=== PATIENT | male | born 1960 | race Caucasian/White ===

== ENCOUNTER 2020-08-23 13:22 | Inpatient (IN) | payer BC ==
[2020-08-23] VITALS (23 sets, daily range): BP systolic 119–155; BP diastolic 76–112
[~2020-08-23] VITALS: Ht 177.8 cm; Wt 81.6 kg
[2020-08-23 13:36] LABS: ABSOLUTE BASOPHILS 0.1 thou/uL (0.0-0.2); ABSOLUTE EOSINOPHILS 0.1 thou/uL (0.0-0.7); ABSOLUTE LYMPHOCYTES 1.9 thou/uL (0.8-5.3); ABSOLUTE MONOCYTES 0.5 thou/uL (0.0-1.2); ABSOLUTE NEUTROPHILS 6.4 thou/uL (1.6-8.1); BASOPHILS 0.7 %; EOSINOPHILS 0.9 %; HEMATOCRIT 49.7 % (42.0-52.0); HEMOGLOBIN 17.1 gm/dL (14.0-18.0); LYMPHOCYTES 21.1 %; MCH 29.9 pg (26.0-34.0); MCHC 34.4 g/dL (28.0-37.0); MCV 86.9 fL (80.0-100.0); MONOCYTES 5.8 %; MPV 7.8 fl. (7.2-11.1); NUCLEATED RBCS 0 /100WBC; PLATELET COUNT* 256 thou/uL (150-400); POLYS 71.5 %; RBC 5.72 mil/uL (4.50-6.00); RDW-CV 13.1 % (10.5-14.5); WBC 8.9 thou/uL (4.0-11.0)
[2020-08-23 13:47] LABS: APTT 28.5 Seconds (25.0-31.3); INR 0.9; PROTIME 9.8 Seconds (9.20-11.50)
[2020-08-23 13:48] LABS: CALCIUM 8.8 mg/dL (8.5-10.1); POTASSIUM 4.1 mmol/L (3.5-5.1)
[2020-08-23 14:04] LABS: ALBUMIN 4.2 g/dL (3.4-5.0); MAGNESIUM 1.9 mg/dL (1.8-2.4); TOTAL BILIRUBIN 0.6 mg/dL (<0.1-1.0); TOTAL PROTEIN 8.5 g/dL (6.4-8.2)
[2020-08-23] MEDS ORDERED: BUPROPION XL300 MG PO (15:39)
[2020-08-23] MEDS ORDERED: COZAAR 25 MG TA25 M1 PO ×2 (15:39)
--- NOTE | 2020-08-23 16:02 | EKG ---
[place] [address] ELECTROCARDIOGRAM REPORT Name: MICHELLE LONDON Room: [address] IN [facility].#: [id number] Admission: 08/23/20 Attend Phys: Joe Biu MD Discharge: Date of : 58 Date of Service: 08/23/20 1326 Report #: [id number] THIS REPORT FOR: //name// [place] [facility] Test Date: 2020-08-23 Test Time: 13:26:34 Pat Name: MICHELLE LONDON Department: Room: [facility] Gender: M Email Marketing Coordinator: AISHA : 1960 Requested By: Emil Nolasco Order Number: [id number] MD: Joe Bui Measurements Intervals [place] Rate: 89 P: 45 MN: 188 QRS: 12 QRSD: 147 T: 24 QT: 385 QTc: 469 Interpretive Statements Sinus rhythm Right bundle branch block Probable inferior infarct, recent Probable anterolateral infarct, acute Baseline wander in lead(s) V1 No previous ECG available for comparison Electronically Signed On 08-23-2020 16:01:55 CDT by Joe Bui [email or web address] <ELECTRONICALLY SIGNED> By: Joe Bui MD, [facility] 08/23/20 1601 1326 1326 Joe Bui MD, [facility] /EPI
--- NOTE | 2020-08-23 16:46 | CARD ---
[address] [address] CARDIAC CATH REPORT Name: MICHELLE LONDON Room: [address] IN [facility]#: [id number] Admission: 08/23/20 Attend Phys: Joe Bui MD, F Discharge: Date of : 58 Report #: [id number] THIS REPORT FOR: cc: Truman Mora MD, Anthony MD Blick,Joe Mijares MD [facility] ~ APPROVED REPORT Study performed: 08/23/2020 13:30:11 Patient Details Patient Status: In-Patient Room #: The patient is a 59 year-old male Event Personnel Dayday Mckenzie RTR Monitor, Renae Ramirez RTR Scrub, Izzy Lino RN RN, Joe Bui [employer] Procedures Performed cath pciLeft Heart Cath w/or w/o Coronaries [id number] [facility] BREE Revasc AMI Total/Sub Single LAD C9606 AMIREVSING Hemostasis with Hemoband Indication Abnormal ECG, STEMI (>0 to less than or equal to 6 hours), Chest pain Risk Factors Arterial Hypertension, Hypercholesterolemia Admission/Lab Medications/Medications given during procedure Glycoprotein IllbIlla Inhibitors, Heparin Unfract., Fentanyl IV 25 mcg, Midazolam (Versed) IV 1 mg, Lidocaine Subcut 4 ml, Nitroglycerin IA 200 mcg, Verapamil IA 2.5 mg, Heparin IV 3000 units, Aggrastat Unknown 10 ml, Ticagrelor PO 180 mg Procedure Narrative The patient was brought emergently to the Cardiac Catheterization Laboratory and was prepped and draped in a sterile manner. The right wrist was infiltrated with 2% Lidocaine subcutaneous anesthesia. IV conscious sedation was used throughout procedure with appropriate monitoring and was performed in the presence of a registered nurse who was an independent [place] [address] CARDIAC CATH REPORT Name: MICHELLE LONDON Ruy Room: [address]#: [id number] Admission: 08/23/20 Attend Phys: Joe Bui MD, F Discharge: Date of : 58 Report #: [id number] performing the procedure. The right wrist accessed via ultrasound guidance. A Slender Glidesheath sheath was inserted into the right radial artery. Coronary angiography was performed using coronary diagnostic catheters. The right coronary system was accessed and visualized with a Diagnostic JR4 6Fr catheter. The left coronary system was accessed and visualized with a Diagnostic JL4 6Fr catheter. The left ventricle was accessed and visualized with a Diagnostic Pigtail 6Fr catheter. Left ventricular/Aortic Valve gradient assessed via catheter pullback. Left ventriculogram was performed in LINDSAY projection. Closure device was deployed with a 6 Fr vascband. The patient tolerated the procedure well and there were no complications associated with the procedure. There was no hematoma. Intraoperative Conscious Sedation Sedation start time: 1346 Case end Time: 1424 Fentanyl 75 mcg Versed 3 mg Fluoro Time: 7.4 minutes Dose: DAP 68103 cGycm2 1269.73 mGy Contrast Type and Amount: Visipaque 160 ml Coronary Angiography The patient's coronary anatomy is right dominant. Diagnostic Cath Left Main 0% stenosis LAD 90% mid stenosis with thrombus Circumflex 0% stenosis Right Coronary 0% stenosis Ramus 0% stenosis Left Ventriculography The left ventricular ejection fraction is estimated to be 45-50%. Left ventricular wall motion abnormalities are present. There is no mitral insufficiency. Moderate hypokinesis noted of the apex. Hemodynamics The aortic pressure is 144/84 mmHg with a mean of 74 mmHg. The left ventricular pressure is 123/5 mmHg with a mean of mmHg. The left ventricular end diastolic pressure is 16 mmHg. There was no gradient across the aortic valve upon pullback. Pullback from the left ventricle to the aorta revealed [place] [address] CARDIAC CATH REPORT Name: MICHELLE LONDON Room: [address]#: [id number] Admission: 08/23/20 Attend Phys: Joe Bui MD, F Discharge: Date of : 58 Report #: [id number] valve. PCI Technique Lesion Anticoagulation was achieved with Heparin. bolus of IV aggrastat given Percutaneous coronary intervention was performed on the mid left anterior descending artery segment. The lesion stenosis prior to intervention was 90% with JONATHAN 3 flow. A xblad3.5 Guide Catheter was used to engage the lm ostium. A bmw Interventional Guidewire was used to cross the lesion. BALLOON DILATION A Balloon catheter 2.5 x 10 mm was inserted and inflated up to 14.00atm for 15seconds. Repeat angiography revealed the following post-dilatation results: 40% stenosis. Additional Inflation: 22.00atm for seconds. STENT DEPLOYMENT A drug-eluting stent 3.0 x 18 mm was inserted and inflated up to 10.00atm for 15seconds. Repeat angiography revealed the following post-stent deployment results: 0% stenosis. Additional Inflation: 18.00atm for 20seconds. Additional Inflation: 22.00atm for 24seconds. Final angiography reveals 0 % stenosis with JONATHAN 3 flow. Conclusion 1. 90% stenosis noted of the mid LAD 2. LVEF 45-50% 3. successful placement of a drug eluting stent in the mid LAD Recommendations Cardiac Rehabilitation Referral Aggressive Medical Therapy Medications Administered Ticagrelor <ELECTRONICALLY SIGNED> By: Joe Bui MD, [facility] 08/23/20 1645 1645 1645Joe Bui MD, FAC /INF
[2020-08-24] VITALS (32 sets, daily range): BP systolic 110–140; BP diastolic 64–94
[2020-08-24 02:44] LABS: HEMOGLOBIN 15.6 gm/dL (14.0-18.0); MCH 29.7 pg (26.0-34.0); MCHC 34.6 g/dL (28.0-37.0); MCV 85.7 fL (80.0-100.0); MPV 8.2 fl. (7.2-11.1); RBC 5.25 mil/uL (4.50-6.00); RDW-CV 13.4 % (10.5-14.5); WBC 9.8 thou/uL (4.0-11.0)
[2020-08-24 02:56] LABS: CALCIUM 8.6 mg/dL (8.5-10.1); POTASSIUM 3.9 mmol/L (3.5-5.1)
[2020-08-24 02:57] LABS: TROPONIN-I LEVEL 6.68 ng/mL (<0.06)
[2020-08-24 08:18] LABS: CHOLESTEROL 254 mg/dL (<200); HDL CHOLESTEROL 42 mg/dL (>40); LDL CHOLESTEROL 146 mg/dL (<100); TRIGLYCERIDE 333 mg/dL (<150); VLDL 67 mg/dL (<40)
[2020-08-24 08:19] LABS: SERUM ASSESSMENT Clear
[2020-08-25] VITALS: BP 134/84
[2020-08-25 05:38] VITALS: BP 133/79
[2020-08-25 08:00] VITALS: BP 134/85
[2020-08-25] MEDS ORDERED: BRILINTA90 MG PO (08:42)
[2020-08-25] MEDS ORDERED: NITROGLYCERIN0.4 MG SUBLING (08:42)
[2020-08-25] MEDS ORDERED: CARVEDILOL3.125 MG PO (08:42)
[2020-08-25] MEDS ORDERED: ZETIA10 MG PO (08:42)
[2020-08-25] MEDS ORDERED: COZAAR 25 MG TA25 M1 PO (08:43)
[2020-08-25] MEDS ORDERED: BAYER CHEWABLE81 MG PO (08:43)
[2020-08-25 10:02] VITALS: BP 134/85
--- NOTE | 2020-08-26 12:46 | H ---
[place] [address] HISTORY AND PHYSICAL Name: MICHELLE LONDON Room: [address]Surjit.#: [id number] Admission: 08/23/20 Attend Phys: Joe Bui MD, F Discharge: 08/25/20 Date of : 58 Report #: [id number] THIS REPORT FOR: cc: Truman Mora MD,Truman Bui,Joe Mijares MD [facility] ~ DOC #: [id number] cc: MD Joe Recio MD [facility] DATE OF SERVICE: 08/23/2020 HISTORY OF PRESENT ILLNESS: The patient is a 59-year-old white male who I was asked to see in the emergency room after a complaint of chest pain. The patient has no previous history of heart disease. He has had occasional chest pain in the past with apparently a stress test that showed no significant heart disease. He is not very active at this time. Today, he was working outside, building a fence when he developed a sharp pain in his chest. He became diaphoretic, short of breath. The pain went into his right arm. He got nausea and vomiting. He called paramedics. He was brought here to [place] by ambulance. ECG shows evidence of acute inferior STEMI. I was asked to see him on an emergent basis. He denies any recent fever, cough, bleeding. He has had no trauma to his chest. Denies exertional dyspnea, palpitations, syncope, peripheral edema. PAST MEDICAL HISTORY: He has had cholecystectomy. He had a leg fracture in the past requiring surgery. He has had neck surgery. He has a history of hypertension. He has a history of depression, sees a psychiatrist. MEDICATIONS: Include losartan, Wellbutrin. He has a history of hyperlipidemia, but cannot tolerate statin drugs in the past because of muscle aches. ALLERGIES: He has no known drug allergies. FAMILY HISTORY: Negative for heart disease. SOCIAL HISTORY: He is . He and his live in [place]. He works at [employer]. No smoking, alcohol abuse. REVIEW OF SYSTEMS: No history of stroke, asthma, liver disease, kidney disease, cancer, psychiatric illness, chronic skin condition. PHYSICAL EXAMINATION: GENERAL: Revealed a middle-aged male, who appeared in mild distress secondary to chest pain. VITAL SIGNS: His blood pressure is 110/70, [place] [address] HISTORY AND PHYSICAL Name: MICHELLE LONDON Room: [address]#: [id number] Admission: 08/23/20 Attend Phys: Joe Bui MD, F Discharge: 08/25/20 Date of : 58 Report #: [id number] HEENT: He was anicteric. Conjunctivae pink. Mucosa is moist. NECK: Veins not distended. No carotid bruits. Neck supple. CHEST: Clear to auscultation. CARDIAC: Regular rate and rhythm. No murmur. ABDOMEN: Soft. EXTREMITIES: No edema. Posterior tibial pulse 2+ bilaterally. SKIN: Cool and dry. NEUROLOGIC: Nonfocal. LABORATORY DATA: ECG shows a sinus rhythm with a right bundle branch block. There is inferior ST segment elevation up to 1.5 mm. IMPRESSION AND RECOMMENDATIONS: 1. Acute inferior STEMI. Recommend urgent cardiac catheterization. 2. Hypertension. The patient is on ARB. 3. Hyperlipidemia. The patient cannot tolerate statin drugs. 4. History of depression. Joe Bui MD [facility] RONNIE/YARELI <ELECTRONICALLY SIGNED> By: Joe Bui MD, [facility] 08/26/20 1246 1240 1311Dnorm Bui MD, [facility] /nt
--- NOTE | 2020-08-26 13:44 | EKG ---
[place] [address] ELECTROCARDIOGRAM REPORT Name: MICHELLE LONDON Room: [address] IN [facility].#: [id number] Admission: 08/23/20 Attend Phys: Joe Bui MD Discharge: 08/25/20 Date of : 58 Date of Service: 08/23/20 1629 Report #: [id number] THIS REPORT FOR: //name// [facility] Test Date: 2020-08-23 Test Time: 16:29:25 Pat Name: MICHELLE LONDON Department: Room: [facility] Gender: M Public Service Officer: SHELBY : 1960 Requested By: Joe Bui Order Number: [id number] Reuben MD: Ruben Sood Measurements Intervals [place] Rate: 71 P: 65 ME: 186 QRS: -3 QRSD: 140 T: 14 QT: 383 QTc: 417 Interpretive Statements Sinus rhythm Right bundle branch block Inferior wall scar Compared to ECG 08/23/2020 13:26:[address]-T changes have evolved Electronically Signed On 08-26-2020 13:44:22 CDT by Ruben Sood [email or web address] <ELECTRONICALLY SIGNED> By: Ruben Sood MD, [facility] 08/26/20 1344 1629 1629 Ruben Sood MD, [facility] /EPI
--- OUTSIDE RECORDS SUMMARY | 2020-08-26 14:27 | XMS REPORT | Summary of Care ---
Demographics + + + | Address | [address] | | | [place], [place] [address] | + + + | Home Phone | | + + + | Preferred Language | Unknown | + + + | Marital Status | | + + + | Anabaptism Affiliation | Unknown | + + + | Race | White | + + + | Ethnic Group | Not or | + + + Author + + + | Author | [facility] | + + + | Organization | [facility] | + + + | Address | Unknown | + + + | Phone | Unavailable | + + + Support + + +---------+ + | Name | Relationship | Address | Phone | + + +---------+ + | Clary | ECON | Unknown | | | [place] | | | | + + +---------+ + Care Team Providers + +------+ + | Care Distribution Accounting Clerk Name | Role | Phone | + +------+ + | Leopoldo Chauhan MD | PCP | Unavailable | + +------+ + Encounter Details +------+---------+ + + + | Date | Type | Department | Care Team | Description | +------+---------+ + + + | 08/04 | Letter | [facility] | Leopoldo Chauhan MD | | | 07/23 | (Out) | [facility] | | | | 21 | | [address] | | | | [address] | | | | | | [address] [place] | | | | | | [facility] [place] [address] | | | | | | [phone] | | | +------+---------+ + + + Allergies Not on Filedocumented as of this encounter (statuses as of 08/26/2020) Medications Not on filedocumented as of this encounter (statuses as of 08/26/2020) Active Problems Not on filedocumented as of this encounter (statuses as of 08/26/2020) Social History + +-------+---------+--------+------+ | Tobacco Use | Types | Packs/D | Years | Date | | | | ay | Used | | + +-------+---------+--------+------+ | Never Assessed | | | | | + +-------+---------+--------+------+ + + + | Sex Assigned at | Date Recorded | | | | + + + | Not on file | | + + + documented as of this encounter Last Filed Vital Signs Not on filedocumented in this encounter Plan of Treatment +------+---------+ + + + | Date | Type | Specialty | Care Team | Description | +------+---------+ + + + | 0 | Office | Cardiology | Art, | | | 12/23 | Visit | | [facility] | | | [address] | | | [address] | | | | | | [address] [place] | | | | | | [place] | | | | | | [address] | | | | | | [phone] | | | | | | [phone] | | | | | | (Fax) | | +------+---------+ + + + | 10/04 | Office | Cardiology | Joe Bui, | | | | Visit | | [address] | | | [address] | | | [address] | | | | | | [address] | | | | | | [place] [address] | | | | | | [phone] | | | | | | [phone] | | | | | | (Fax) | | +------+---------+ + + + + +---------+-------+ + | Health | Due | Last | Comments | | Maintenance | Date | Done | | + +---------+-------+ + | COLONOSCOPY | | | | | | 960 | | | + +---------+-------+ + | COVID-19 VACCINE | | | | | | 978 | | | + +---------+-------+ + | INFLUENZA | | | | | VACCINE | 021 | | | + +---------+-------+ + documented as of this encounter Results Not on filedocumented in this encounter"
--- NOTE | 2020-08-27 16:32 | D ---
[address] [address] DISCHARGE SUMMARY Name: MICHELLE LONDON Room: [address]#: [id number] Admission: 08/23/20 Attend Phys: Joe Bui MD, F Discharge: 08/25/20 Date of : 58 Report #: [id number] THIS REPORT FOR: cc: Truman Mora MD,Truman Bui,Joe Mijares MD [facility] ~ DOC #: [id number] cc: MD Joe Recio MD [facility] DATE OF DISCHARGE: 08/25/2020 DISCHARGE DIAGNOSES: 1. Acute anterior ST segment elevation myocardial infarction. 2. Coronary artery disease. 3. Hypertension. 4. Hyperlipidemia. CONSULTANTS: None. PROCEDURES: Emergent left heart catheterization via the right radial artery with placement of a single drug-eluting stent in the left anterior descending artery. HISTORY OF PRESENT ILLNESS: The patient is a 59-year-old white male who came to the emergency room complaining of chest pain. The patient has a long history of chest pain, but apparently stress test in the past showed no significant ischemia. He has never had a heart catheterization. On the day of admission, he was working outside when he felt a discomfort in his chest, became diaphoretic and short of breath. He felt nausea and vomiting. He called paramedics. ECG showed evidence of acute anterior ST segment elevation myocardial infarction. He was brought to [place] by ambulance. I was asked to see him on an emergent basis. He does have discomfort which seemed to come and go. He denies any recent fever, cough, shortness of breath, bleeding, palpitations or syncope. PAST MEDICAL HISTORY: He has had previous cholecystectomy, neck surgery, hypertension, hyperlipidemia, history of anxiety and he sees a psychiatrist. MEDICATIONS: On admission included losartan and Wellbutrin. ALLERGIES: HE COULD NOT TOLERATE STATIN DRUGS in the past because of myalgias. He had no known drug allergies. PHYSICAL EXAMINATION: VITAL SIGNS: Blood pressure 110/70, [place] 90[place] [address] DISCHARGE SUMMARY Name: MICHELLE LONDON Room: [address]#: [id number] Admission: 08/23/20 Attend Phys: Joe Bui MD, F Discharge: 08/25/20 Date of : 58 Report #: [id number] CHEST: Clear to auscultation. CARDIAC: Regular rate and rhythm. ABDOMEN: Soft. EXTREMITIES: No edema. SKIN: Warm and dry. ECG: Sinus rhythm, right bundle branch block. There is ST segment elevation in lead II, III, aVF as well as V6. Chest x-ray on admission was unremarkable. LABORATORY DATA: Sodium 139, potassium 3.9, creatinine 1.0, fasting glucose 105. His liver function studies were normal. His troponin on admission was 2.66, it peaked at 6.68. His cholesterol was 254, triglycerides 333, HDL 42, LDL 146. White blood cell count 9.8, hemoglobin 17.1, platelet count was normal. His COVID antigen stat test was negative. HOSPITAL COURSE: The patient was taken emergently to the cardiac catheterization lab. I performed emergent cardiac catheterization from the right radial artery. Results showed a 90% stenosis of the LAD with a thrombus. There was normal flow, however. There is no significant disease in the circumflex or right coronary artery. Ejection fraction was 45% with apical hypokinesis. He was then given heparin and given a bolus of Aggrastat. I then placed a single drug-eluting stent in the mid LAD. He tolerated the procedure well. Following the procedure, he had no further chest pain, shortness of breath or palpitations. He developed no hematoma in the right wrist. He was loaded with Brilinta. After being in the ICU overnight, the patient was transferred to a telemetry bed on the second hospital day. On the third hospital day, the patient had no further complaints. At the time of discharge, he had a blood pressure of 130/80, pulse 70, and he was afebrile. He was discharged on the following medications: He was to continue taking his Wellbutrin 300 mg a day and he is followed by psychiatrist. He was on losartan 25 mg a day for hypertension. He was to take aspirin 81 mg a day. He was started on carvedilol 3.125 mg twice a day. For his hyperlipidemia, he was started on Zetia 10 mg a day. He was to slowly increase his activity. He was to contact my office if he had recurrent chest pain, shortness of breath or palpitations. He was given nitroglycerin to take as needed for chest pain. In the future, I would consider adding Vascepa because of his hypertriglyceridemia. He was scheduled to see me back in Cardiology clinic in 6 weeks for followup of his myocardial infarction. I did recommend that he enroll in cardiac rehabilitation. If his LDL remains greater than 130 despite Zetia, I would consider referral for PCSK9 injections. I have recommended he start an exercise program and low salt diet. His prognosis is guarded due to his coronary artery disease. He was discharged to return to Dr. Mora for routine medical care. There is no hematoma in the right wrist following the procedure. Joe Bui MD [facility] [address] [place] [address] DISCHARGE SUMMARY Name: MICHELLE LONDON Room: [address] IN M.R.#: [id number] Admission: 08/23/20 Attend Phys: Joe Bui MD, F Discharge: 08/25/20 Date of : 58 Report #: [id number] DRB/NIS <ELECTRONICALLY SIGNED> By: Joe Bui MD, FACRuy 08/27/20 1632 1144 1252David Maryana Bui MD, FACC /nt
== END 2020-08-25 10:35 | disposition home or self-care (01) | DRG 246 ==
LOC: M.CL 13:22 → M.SUR 13:22 → M.ERS 13:22 → M.CL 13:33 → M.TBA-CV 13:33 → M.2W 15:04 → M.TBA-ER 15:04 → M.ICU 15:04 → M.2W 08-24 16:07
PROVIDERS: Family Medicine; Registered Nurse; ADMIT Internal Medicine Cardiovascular Disease; ATTEND Internal Medicine Cardiovascular Disease
PROC: B211YZZ Fluoroscopy of Multiple Coronary Arteries using Other Contrast (ICD-10-PCS; principal; 2020-08-23)
PROC: 027034Z Dilation of Coronary Artery, One Artery with Drug-eluting Intraluminal Device, Percutaneous Approach (ICD-10-PCS; principal; 2020-08-23)
PROC: B215YZZ Fluoroscopy of Left Heart using Other Contrast (ICD-10-PCS; principal; 2020-08-23)
PROC: 4A023N7 Measurement of Cardiac Sampling and Pressure, Left Heart, Percutaneous Approach (ICD-10-PCS; principal; 2020-08-23)
DX: I21.09 ST elevation (STEMI) myocardial infarction involving other coronary artery of anterior wall (principal); I50.33 Acute on chronic diastolic (congestive) heart failure; E78.5 Hyperlipidemia, unspecified; I25.10 Atherosclerotic heart disease of native coronary artery without angina pectoris; I11.0 Hypertensive heart disease with heart failure; F32.9 Major depressive disorder, single episode, unspecified; F41.9 Anxiety disorder, unspecified; I25.5 Ischemic cardiomyopathy; Z20.822 Contact with and (suspected) exposure to COVID-19; Z79.899 Other long term (current) drug therapy; Z90.49 Acquired absence of other specified parts of digestive tract

== ENCOUNTER → 2021-06-02 | Outpatient (CLI) | payer BC ==
[~2021-06-02] VITALS: Ht 185.4 cm; Wt 95.3 kg
[2021-06-02] VITALS (9 sets, daily range): BP systolic 124–148; BP diastolic 82–96
[~2021-06-02] MED LIST: BAYER CHEWABLE81 MG PO; BRILINTA90 MG PO; BUPROPION XL300 MG PO; CARVEDILOL3.125 MG PO; COZAAR 25 MG TA25 M1 PO; NITROGLYCERIN0.4 MG SUBLING; PLAVIX 75 MG TA75 MG PO; REPATHA SY140 MG/1 M SUBQ; SUPER THERAVIT1 EACH PO; VIAGRA100 MG PO; XANAX 0.5 MG0.5 M1 PO; ZETIA10 MG PO
[2021-06-02 08:20] LABS: ANION GAP 8 mmol/L (7-16); BUN 18 mg/dL (7-18); CALCIUM 8.7 mg/dL (8.5-10.1); CHLORIDE 101 mmol/L (98-107); CO2 30 mmol/L (21-32); CREATININE 1.1 mg/dL (0.6-1.3); GLUCOSE 108 mg/dL (70-99); SODIUM 139 mmol/L (136-145)
[2021-06-02 08:24] LABS: APTT 30.9 Seconds (25.0-31.3); PROTIME 9.8 Seconds (9.20-11.50)
[2021-06-02 08:25] LABS: ALBUMIN 3.9 g/dL (3.4-5.0); ALKALINE PHOSPHATASE 73 U/L (46-116); CHOLESTEROL 299 mg/dL (<200); HDL CHOLESTEROL 53 mg/dL (>40); LDL CHOLESTEROL 187 mg/dL (<100); SGOT 24 U/L (15-37); SGPT 57 U/L (30-65); TC:HDL 5.6 Ratio (Not establshd); TOTAL BILIRUBIN 0.5 mg/dL (<0.1-1.0); TOTAL PROTEIN 7.8 g/dL (6.4-8.2); TRIGLYCERIDE 299 mg/dL (<150); VLDL 60 mg/dL (<40)
[2021-06-02 08:28] LABS: SERUM ASSESSMENT Clear
[2021-06-02 08:31] LABS: HEMATOCRIT 52.6 % (42.0-52.0); HEMOGLOBIN 17.8 gm/dL (14.0-18.0); MCV 88.3 fL (80.0-100.0); MPV 8.8 fl. (7.2-11.1); RBC 5.95 mil/uL (4.50-6.00); RDW-CV 12.7 % (10.5-14.5); WBC 6.3 thou/uL (4.0-11.0)
--- NOTE | 2021-06-02 09:56 | EKG ---
[place] [address] ELECTROCARDIOGRAM REPORT Name: LITAMICHELLE Room: [facility]#: [id number] Admission: 06/02/21 Attend Phys: Joe Bui MD Discharge: Date of : 58 Date of Service: 06/02/21 0754 Report #: [id number] THIS REPORT FOR: //name// [facility] Test Date: 2021-06-02 Test Time: 07:54:46 Pat Name: MICHELLE LONDON Department: Room: Gender: Trim Carpenter: : 1960 Requested By: Joe Bui Order Number: [id number] Reuben MD: Joe Bui Measurements Intervals [place] Rate: 65 P: 65 [place]: 178 QRS: 34 QRSD: 140 T: 23 QT: 395 QTc: 411 Interpretive Statements Sinus rhythm Right bundle branch block Compared to ECG 08/23/2020 16:29:25 no change Electronically Signed On 06-02-2021 9:56:20 CYANIDE CASE HARDENER by Joe Bui [email or web address] <ELECTRONICALLY SIGNED> By: Joe Bui MD, [facility] 06/02/21 0956 0754 0754 Joe Bui MD, [facility] /EPI
--- NOTE | 2021-06-02 12:57 | CARD ---
[address] [address] CARDIAC CATH REPORT Name: MICHELLE LONDON Room: [facility] DORI BradfordLiaSurjitLia#: [id number] Admission: 06/02/21 Attend Phys: Joe Bui MD, F Discharge: Date of : 58 Report #: [id number] THIS REPORT FOR: cc: Truman Mora MD, Anthony MD Blick,Joe Mijares MD [facility] ~ APPROVED REPORT Study performed: 06/02/2021 09:56:07 Patient Details Patient Status: Out-Patient Room #: The patient is a 60 year-old male Event Personnel Joe Bui Refuge Worker, Ludy Silva RN Retirement ConsultantGail Angela RCIS Monitor, Dayday Mckenzie RTR Scrub Procedures Performed Left Heart Cath w/or w/o Coronaries [id number] [facility] Indication Chest pain Risk Factors Hypercholesterolemia, Coronary Artery Disease Previous Procedures/Diagnoses Previous PCI, Previous TN Procedure Narrative The patient was brought electively to the Cardiac Catheterization Laboratory and was prepped and draped in a sterile manner. The right femoral was infiltrated with 1% Lidocaine subcutaneous anesthesia. IV conscious sedation was used throughout procedure with appropriate monitoring and was performed in the presence of a registered nurse who was an independent trained observer other than the physician performing the procedure. A 6fr Ultimum Sheath sheath was inserted into the right femoral artery. Coronary angiography was performed using coronary diagnostic catheters. The right coronary system was accessed and visualized with a Diagnostic 6Fr JR4 catheter. The left coronary system was accessed and visualized with a Diagnostic 6Fr JL4 catheter. The left ventricle was accessed and [place] [address] CARDIAC CATH REPORT Name: MICHELLE LONDON Room: [facility]#: [id number] Admission: 06/02/21 Attend Phys: Joe Bui MD, F Discharge: Date of : 58 Report #: [id number] Diagnostic 6Fr Straight Pigtail catheter. Left ventricular/Aortic Valve gradient assessed via catheter pullback. Left ventriculogram was performed in LINDSAY projection. Pre-demployment femoral angiogram was performed in LINDSAY. Closure device was deployed with a 6 Fr MynxGrip 6/7F. The patient tolerated the procedure well and there were no complications associated with the procedure. There was no hematoma. Right radial access was attempted however unsuccessful, as was unable to enter the radial artery with the percutaneous needle. Dressing was applied and it was decided to proceed from the femoral approach. Intraoperative Conscious Sedation Sedation start time: 1016 Case end Time: 1029 Fentanyl 50.0 mcg Versed 4.0 mg Fluoro Time: 2.0 minutes Dose: DAP 99164 cGycm2 257 mGy Contrast Type and Amount: Visipaque 95 mL Coronary Angiography The patient's coronary anatomy is right dominant. Diagnostic Cath Left Main 0% stenosis LAD stent in the mid LAD had 0% restenosis Circumflex 0% stenosis Right Coronary 0% stenosis Left Ventriculography The left ventricular ejection fraction is estimated to be 60-65%. Left ventricular wall motion abnormalities are not present. There is no mitral insufficiency. Hemodynamics The aortic pressure is 147/82 mmHg with a mean of 106 mmHg. The left ventricular pressure is 133/9 mmHg with a mean of 18 mmHg. The left ventricular end diastolic pressure is 16 mmHg. There was no gradient across the aortic valve upon pullback. Pullback from the left ventricle to the aorta revealed no gradient across the aortic valve. Conclusion 1. no restenosis of a stent in the mid LAD 2. LVEF 60-65% [place] [address] CARDIAC CATH REPORT Name: MICHELLE LONDON Room: [facility]#: [id number] Admission: 06/02/21 Attend Phys: Joe Bui MD, F Discharge: Date of : 58 Report #: [id number] 3. suspect non cardiac chest pain Recommendations Aggressive Medical Therapy <ELECTRONICALLY SIGNED> By: Joe Bui MD, [facility] 06/02/21 1257 1257 1257David Maryana Bui MD, FACC /INF
== END | disposition home or self-care (01) ==
LOC: M.CL 07:16
PROVIDERS: ATTEND Internal Medicine Cardiovascular Disease
DX: R07.9 Chest pain, unspecified (principal); I25.10 Atherosclerotic heart disease of native coronary artery without angina pectoris; I10 Essential (primary) hypertension; E78.5 Hyperlipidemia, unspecified; E78.00 Pure hypercholesterolemia, unspecified; F32.9 Major depressive disorder, single episode, unspecified; Z98.890 Other specified postprocedural states; Z79.899 Other long term (current) drug therapy; Z20.822 Contact with and (suspected) exposure to COVID-19; Z88.8 Allergy status to other drugs, medicaments and biological substances